=== PATIENT | male | born 1935 | race Caucasian/White ===

== ENCOUNTER → 2016-05-31 | Outpatient (CLI) | payer MEDICARE | END | disposition home or self-care (01) | LOC: PCVCIMAG 11:39 | PROVIDERS: ATTEND Internal Medicine Cardiovascular Disease | DX: I48.91 Unspecified atrial fibrillation (principal); I35.0 Nonrheumatic aortic (valve) stenosis; I25.10 Atherosclerotic heart disease of native coronary artery without angina pectoris; I77.9 Disorder of arteries and arterioles, unspecified; E78.00 Pure hypercholesterolemia, unspecified; G45.9 Transient cerebral ischemic attack, unspecified; I10 Essential (primary) hypertension; R06.00 Dyspnea, unspecified; I70.1 Atherosclerosis of renal artery | CPT/HCPCS: 76770; 93975; G0463 ==

== ENCOUNTER → 2016-06-10 | Outpatient (CLI) | payer MEDICARE ==
[~2016-06-10] MED LIST: DIAZEPAM 10 MG TABLET. ONE; FENTANYL PF 100 MCG/2 ML VIAL. ONE; HEPARIN SODIUM 5,000 UNIT/ML VIAL. ONE; IOHEXOL 350 MG/ML 100 ML VIAL. ONE; IOHEXOL 350 MG/ML 50 ML VIAL. ONE; IV NORMAL SALINE 1000ML BAG 1,000 ML ONE; LIDOCAINE 1% Multi-Dose 20 ML VIAL. ONE; MIDAZOLAM HCL/PF 2 MG/2 ML VIAL. ONE; VANCOMYCIN 1GM IVPB FOR OMNI 0 ML ONE; hydrALAZINE 20 MG/ML VIAL. ONE
== END | disposition home or self-care (01) ==
LOC: PCVCINTER 06:54
PROVIDERS: ATTEND Nuclear Medicine Nuclear Cardiology
DX: I70.0 Atherosclerosis of aorta (principal); I70.1 Atherosclerosis of renal artery; I15.0 Renovascular hypertension
CPT/HCPCS: 36252; 75630; 76937; 93454; 93567; C1751; C1760; C1769; C1894; J2250; J3010; J7030; Q9967; J0360; J1644; J3370

== ENCOUNTER → 2016-09-02 | Outpatient (CLI) | payer MEDICARE ==
--- NOTE | 2016-09-02 09:55 | PCVCIMAG ---
APPROVED REPORT Patient Location: Out-Patient Indications Bruit Doppler Spectral Velocity Analysis PSV / EDVPSV / EDV ECA (R) 94 / 10 cm/sECA (L) 217 / 26 cm/s dICA (R) 33 / 8 cm/sdICA (L) 49 / 14 cm/s Arleth (R) 72 / 15 cm/smICA (L) 52 / 10 cm/s pICA (R) 55 / 11 cm/spICA (L) 73 / 18 cm/s Bulb (R) 60 / 25 cm/sBulb (L) 86 / 18 cm/s dCCA (R) 69 / 15 cm/sdCCA (L) 86 / 14 cm/s mCCA (R) 98 / 15 cm/smCCA (L) 77 / 14 cm/s Vert (R) 28 / 5 cm/sVert (L) 54 / 10 cm/s ICA/CCA 1.04 ICA/CCA 0.85 Findings The right carotid bulb has moderate heterogeneous plaque. The right proximal internal carotid artery shows <40% stenosis. The right common carotid artery shows no significant stenosis. The right external carotid artery shows no significant stenosis. The left carotid bulb has moderate heterogeneous plaque. The left proximal internal carotid artery shows <40% stenosis. The left common carotid artery shows no significant stenosis. The left external carotid artery shows >50% stenosis. Conclusion 1. Right internal carotid artery stenosis (<40%) 2. Left internal carotid artery stenosis (<40%) 3. Antegrade vertebral flow
--- NOTE | 2016-09-02 13:18 | PCVCIMAG ---
APPROVED REPORT Study performed: 09/02/2016 11:01:16 EXAM: Comprehensive 2D, Doppler, and color-flow Echocardiogram Patient Location: Echo lab Status: routine Other Information Study Quality: Adequate Indications Aortic Valve Disease Atrial Fibrillation Hypertension/HDD Hyperlipidemia, Aortic Stenosis 2D Dimensions IVSd: 9.48 (7-11mm)LVOT Diam: 20.34 (18-24mm) LVDd: 46.53 mm PWd: 9.91 (7-11mm)Ascending Ao: 36.49 (22-36mm) LVDs: 34.52 (25-40mm) Left Atrium: 61.41 (27-40mm) Aortic Root: 28.14 mm LV Single Plane 4CH: 56.16 % LV Single Plane 2CH: 42.41 %Tom's LVEF: 49.28 % Biplane EF: 50.9 % Volumes Left Atrial Volume (Systole) Single Plane 4CH: 95.22 mLSingle Plane 2CH: 109.90 mL Aortic Valve AoV Peak Trenton.: 3.39 m/s AO Peak Gr.: 46.32 mmHgLVOT Max P.61 mmHg AO Mean Gr.: 28.30 mmHgLVOT Mean P.77 mmHg AO V2 Mean: 2.53 m/sLVOT Max V: 0.95 m/s AO V2 VTI: 80.00 cmLVOT Mean V: 0.61 m/s YOHAN (VTI): 0.82 [id number] V1 VTI: 20.31 cm YOHAN Vmax: 0.91 cm2 SV (LVOT): 65.96 mL Mitral Valve E/A Ratio: 0.9 MV E Max Trenton.: 1.14 m/s MV A Trenton.: 1.25 m/s Tricuspid Valve TR Peak [place]on.: 3.19 m/s TR Peak Gr.: 41.05 mmHg Left Ventricle The left ventricle is normal size. There is normal LV segmental wall motion. There is normal left ventricular wall thickness. Left ventricular systolic function is normal. The left ventricular ejection fraction is within the normal range. LVEF is 50-55%. The left ventricular diastolic function is normal. Right Ventricle The right ventricle is normal size. The right ventricular systolic function is normal. Atria Left atrium is severely dilated. The right atrium size is normal. Aortic Valve The aortic valve is moderately sclerotic. Aortic Valve Area is 0.8 cm2. Peak gradient is 51mmhg. Mean gradient is 33mmhg. No aortic regurgitation is present. There is no aortic valvular Mitral Valve The mitral valve is normal in structure. Mild mitral regurgitation. No evidence of mitral valve stenosis. Tricuspid Valve The tricuspid valve is normal in structure. Moderate tricuspid regurgitation. Pulmonary artery pressure is 55mmhg. Pulmonic Valve The pulmonary valve is normal in structure. There is no pulmonic valvular regurgitation. Great Vessels The aortic root is normal in size. IVC is normal in size and collapses with >50% inspiration Pericardium There is no pericardial effusion. <Conclusion> The left ventricle is normal size. Left ventricular systolic function is normal. The left ventricular ejection fraction is within the normal range. The left ventricular diastolic function is normal. The right ventricle is normal size. The aortic valve is moderately sclerotic. Aortic Valve Area is 0.8 cm2. Peak gradient is 51mmhg. Mean gradient is 33mmhg. No aortic regurgitation is present. Mild mitral regurgitation. There is no pericardial effusion. Moderate tricuspid regurgitation. Pulmonary artery pressure is 55mmhg.
== END | disposition home or self-care (01) ==
LOC: PCVCIMAG 09:21
PROVIDERS: ATTEND Internal Medicine Cardiovascular Disease
DX: I65.23 Occlusion and stenosis of bilateral carotid arteries (principal); I08.1 Rheumatic disorders of both mitral and tricuspid valves; I48.0 Paroxysmal atrial fibrillation; I77.89 Other specified disorders of arteries and arterioles; I45.10 Unspecified right bundle-branch block; I25.10 Atherosclerotic heart disease of native coronary artery without angina pectoris; I10 Essential (primary) hypertension; I49.3 Ventricular premature depolarization; R09.89 Other specified symptoms and signs involving the circulatory and respiratory systems; Z79.899 Other long term (current) drug therapy; Z87.891 Personal history of nicotine dependence; Z88.0 Allergy status to penicillin
CPT/HCPCS: 80061; 93005; 93306; 93880; G0463

== ENCOUNTER → 2017-08-14 | Outpatient (CLI) | payer MEDICARE | END | disposition home or self-care (01) | LOC: PCVCCLINIC 11:20 | DX: I25.10 Atherosclerotic heart disease of native coronary artery without angina pectoris (principal); I10 Essential (primary) hypertension; I35.0 Nonrheumatic aortic (valve) stenosis; I48.0 Paroxysmal atrial fibrillation; I77.9 Disorder of arteries and arterioles, unspecified; E78.00 Pure hypercholesterolemia, unspecified; Z87.891 Personal history of nicotine dependence; Z79.899 Other long term (current) drug therapy; Z88.0 Allergy status to penicillin | CPT/HCPCS: 93005; G0463 ==

== ENCOUNTER → 2017-12-16 | Outpatient (CLI) | payer MEDICARE ==
--- NOTE | 2017-12-16 15:15 | PCVCIMAG ---
APPROVED REPORT Study performed: 12/16/2017 10:20:54 EXAM: Comprehensive 2D, Doppler, and color-flow Echocardiogram Patient Location: Echo lab Status: routine BSA: 1.97 HR: 73 bpm Rhythm: Atrial Fibrillation Other Information Study Quality: Good Risk Factors: Cardiac Risk Factors: Hyperlipidemia, HTN Indications Atrial Fibrillation CAD Stents, Aortic Stenosis 2D Dimensions IVSd: 13.92 (7-11mm)LVOT Diam: 20.18 (18-24mm) LVDd: 46.23 mm PWd: 9.49 (7-11mm)Ascending Ao: 38.46 (22-36mm) LVDs: 35.77 (25-40mm) Left Atrium: 64.67 (27-40mm) Aortic Root: 31.89 mm LV Single Plane 4CH: 41.63 % LV Single Plane 2CH: 28.72 % Biplane EF: 37.0 % Volumes Left Atrial Volume (Systole) Single Plane 4CH: 113.38 mLSingle Plane 2CH: 125.72 mL LA ESV Index: 65.00 mL/m2 Aortic Valve AoV Peak Trenton.: 4.05 m/s AO Peak Gr.: 65.67 mmHgLVOT Max P.69 mmHg AO Mean Gr.: 38.98 mmHgLVOT Mean P.68 mmHg AO V2 Mean: 3.05 m/sLVOT Max V: 0.96 m/s AO V2 VTI: 100.14 cm YOHAN (VTI): 0.65 [id number] V1 VTI: 20.49 cm YOHAN Vmax: 0.76 cm2 Mitral Valve E/A Ratio: 1.0 MV E Max Trenton.: 1.30 m/s MV A Trenton.: 1.29 m/s Pulmonary Valve PV Peak Gr.: 3.12 mmHg Tricuspid Valve TR Peak Trenton.: 3.19 m/s TR Peak Gr.: 40.72 mmHg Left Ventricle The left ventricle is normal size. There is normal LV segmental wall motion. Mild to moderate concentric left ventricular hypertrophy. Left ventricular systolic function is normal. The left ventricular ejection fraction is within the normal range. LVEF is 50-55%. This study is not technically sufficient to allow evaluation of the LV diastolic function due to atrial fibrillation. Right Ventricle The right ventricle is normal size. The right ventricular systolic function is normal. Atria Left atrium is severely dilated. Right atrium is moderately dilated. Aortic Valve Aortic valve leaflets are moderately thickened. Trace to mild aortic regurgitation. Severe aortic stenosis. Peak gradient is 60mmHg. Mean gradient is 39mmHg. Aortic valve area is 0.8cm2. Mitral Valve Mild mitral annular calcification. Mild mitral regurgitation. No evidence of mitral valve stenosis. Tricuspid Valve The tricuspid valve is normal in structure. Moderate tricuspid regurgitation. Pulmonary artery pressure is 48mmHg. Pulmonic Valve The pulmonary valve is normal in structure. There is no pulmonic valvular regurgitation. Great Vessels The aortic root is normal in size. IVC is normal in size and collapses >50% with inspiration. Pericardium There is no pericardial effusion. <Conclusion> The left ventricle is normal size. Mild to moderate concentric left ventricular hypertrophy. LVEF is 50-55%. This study is not technically sufficient to allow evaluation of the LV diastolic function due to atrial fibrillation. The right ventricle is normal size. Left atrium is severely dilated. Right atrium is moderately dilated. Aortic valve leaflets are moderately thickened. Trace to mild aortic regurgitation. Severe aortic stenosis. Peak gradient is 60mmHg. Mean gradient is 39mmHg. Aortic valve area is 0.8cm2. Mild mitral annular calcification. Mild mitral regurgitation. The aortic root is normal in size. There is no pericardial effusion.
== END | disposition home or self-care (01) ==
LOC: PCVCIMAG 09:57
PROVIDERS: ATTEND Internal Medicine Cardiovascular Disease
DX: I05.1 Rheumatic mitral insufficiency (principal); I25.10 Atherosclerotic heart disease of native coronary artery without angina pectoris; I48.0 Paroxysmal atrial fibrillation; I35.0 Nonrheumatic aortic (valve) stenosis; I77.9 Disorder of arteries and arterioles, unspecified; E78.00 Pure hypercholesterolemia, unspecified; I10 Essential (primary) hypertension; I70.1 Atherosclerosis of renal artery; Z86.73 Personal history of transient ischemic attack (TIA), and cerebral infarction without residual deficits; Z87.891 Personal history of nicotine dependence
CPT/HCPCS: 80061; 93005; 93306; G0463

== ENCOUNTER → 2018-03-05 | Outpatient (CLI) | payer MEDICARE | END | disposition home or self-care (01) | LOC: PCVCCLINIC 13:00 | PROVIDERS: ATTEND Internal Medicine Cardiovascular Disease | DX: I25.10 Atherosclerotic heart disease of native coronary artery without angina pectoris (principal); I48.0 Paroxysmal atrial fibrillation; I35.0 Nonrheumatic aortic (valve) stenosis; I11.0 Hypertensive heart disease with heart failure; I50.9 Heart failure, unspecified; E78.00 Pure hypercholesterolemia, unspecified; I65.23 Occlusion and stenosis of bilateral carotid arteries; Z86.73 Personal history of transient ischemic attack (TIA), and cerebral infarction without residual deficits; Z87.891 Personal history of nicotine dependence; Z88.0 Allergy status to penicillin | CPT/HCPCS: 93005; G0463 ==

== ENCOUNTER → 2018-06-09 | Outpatient (CLI) | payer MEDICARE | END | disposition home or self-care (01) | LOC: PCVCCLINIC 11:12 | PROVIDERS: ATTEND Internal Medicine Cardiovascular Disease | DX: I25.10 Atherosclerotic heart disease of native coronary artery without angina pectoris (principal); I35.0 Nonrheumatic aortic (valve) stenosis; I48.2 Chronic atrial fibrillation; I10 Essential (primary) hypertension; E78.00 Pure hypercholesterolemia, unspecified; Z87.891 Personal history of nicotine dependence; Z72.89 Other problems related to lifestyle; Z79.899 Other long term (current) drug therapy; Z88.0 Allergy status to penicillin; Z88.8 Allergy status to other drugs, medicaments and biological substances | CPT/HCPCS: 36415; 80061; 93005; G0463 ==

== ENCOUNTER → 2019-01-13 | Outpatient (CLI) | payer MEDICARE ==
--- NOTE | 2019-01-13 11:31 | PCVCIMAG ---
APPROVED REPORT Study performed: 01/13/2019 08:16:36 EXAM: Comprehensive 2D, Doppler, and color-flow Echocardiogram Patient Location: Echo lab Room #: 2Status: routine BSA: 2.01 HR: 65 bpmBP: 150/94 mmHg Rhythm: Atrial Fibrillation Other Information Study Quality: Good Risk Factors: Cardiac Risk Factors: HTN Indications Aortic Valve Disease Atrial Fibrillation CAD Hypertension/HDD 2D Dimensions IVSd: 11.56 (7-11mm)LVOT Diam: 19.64 (18-24mm) LVDd: 47.21 mm PWd: 10.72 (7-11mm) LVDs: 29.20 (25-40mm) Left Atrium: 54.56 (27-40mm) Aortic Root: 24.42 mm LV Single Plane 4CH: 73.21 % LV Single Plane 2CH: 60.56 % Biplane EF: 68.0 % Volumes Left Atrial Volume (Systole) Single Plane 4CH: 166.26 mLSingle Plane 2CH: 122.69 mL Biplane LA Volume: 145.00 mLLA ESV Index: 71.00 mL/m2 Aortic Valve AoV Peak Trenton.: 4.04 m/s AO Peak Gr.: 68.36 mmHgLVOT Max P.85 mmHg AO Mean Gr.: 41.77 mmHgLVOT Mean P.42 mmHg AO V2 Mean: 3.08 m/sLVOT Max V: 0.83 m/s AO V2 VTI: 99.80 cmLVOT Mean V: 0.57 m/s YOHAN (VTI): 0.57 [id number] V1 VTI: 18.76 cm YOHAN Vmax: 0.62 cm2 SV (LVOT): 56.82 mL Mitral Valve E/A Ratio: 8.7 MV E Max Trenton.: 0.96 m/s MV A Trenton.: 0.11 m/s MV VTI: 210.17 mm MVA VTI: 270.34 mm2 IVRT: 93.43 ms TDI E/Lateral E': 9.60E/Medial E': 13.71 Medial E' Trenton.: 0.07 m/s Lateral E' Trenton.: 0.10 m/s Pulmonary Valve PV Peak Trenton.: 0.95 m/sPV Peak Gr.: 3.62 mmHg Tricuspid Valve TR Peak [place]on.: 3.17 m/s TR Peak Gr.: 40.27 mmHg TV Vmax: 0.78 m/sPA Pressure: 50.00 mmHg Left Ventricle The left ventricle is normal size. There is normal LV segmental wall motion. Mild concentric left ventricular hypertrophy. Left ventricular systolic function is normal. LVEF is 65-70%. This study is not technically sufficient to allow evaluation of the LV diastolic function due to atrial fibrillation. Right Ventricle The right ventricle is normal size. The right ventricular systolic function is normal. Atria Left atrium is severely dilated. Right atrium is severely dilated. Aortic Valve Aortic valve is trileaflet. Severe aortic valve sclerosis with severely reduced leaflet extention. No aortic regurgitation is present. There is severe valvular aortic stenosis. Calculated aortic valve area is 0.7 cm2 with maximum pressure gradient of 65 mmHg and mean pressure gradient of 42 mmHg. Mitral Valve The mitral valve is normal in structure. Moderate to severe mitral regurgitation No evidence of mitral valve stenosis. Tricuspid Valve The tricuspid valve is normal in structure. Severe tricuspid regurgitation with a PA pressure of 50 mmHg. Moderate pulmonary hypertension. Pulmonic Valve The pulmonary valve is normal in structure. There is no pulmonic valvular regurgitation. Great Vessels The aortic root is normal in size. Ascending aorta is mildly dilated at 3.8. Aortic arch is not well visualized. IVC is normal in size and collapses <50% with inspiration. Pericardium There is no pericardial effusion. There is no pleural effusion. <Conclusion> The left ventricle is normal size. Mild concentric left ventricular hypertrophy. LVEF is 65-70%. This study is not technically sufficient to allow evaluation of the LV diastolic function due to atrial fibrillation. The right ventricle is normal size. Left atrium is severely dilated. Right atrium is severely dilated. Aortic valve is trileaflet. Severe aortic valve sclerosis with severely reduced leaflet extention. There is severe valvular aortic stenosis. Calculated aortic valve area is 0.7 cm2 with maximum pressure gradient of 65 mmHg and mean pressure gradient of 42 mmHg. Moderate to severe mitral regurgitation Severe tricuspid regurgitation with a PA pressure of 50 mmHg. Moderate pulmonary hypertension. There is no pericardial effusion. Ascending aorta is mildly dilated at 3.8. Aortic arch is not well visualized.
== END | disposition home or self-care (01) ==
LOC: PCVCIMAG 08:22
PROVIDERS: ATTEND Internal Medicine Cardiovascular Disease
DX: I08.3 Combined rheumatic disorders of mitral, aortic and tricuspid valves (principal); I11.9 Hypertensive heart disease without heart failure; I25.10 Atherosclerotic heart disease of native coronary artery without angina pectoris; I48.21 Permanent atrial fibrillation; C43.9 Malignant melanoma of skin, unspecified; E78.00 Pure hypercholesterolemia, unspecified; I27.20 Pulmonary hypertension, unspecified; D68.59 Other primary thrombophilia; I65.23 Occlusion and stenosis of bilateral carotid arteries; Z88.0 Allergy status to penicillin; Z88.8 Allergy status to other drugs, medicaments and biological substances; Z86.73 Personal history of transient ischemic attack (TIA), and cerebral infarction without residual deficits; Z90.49 Acquired absence of other specified parts of digestive tract; Z79.899 Other long term (current) drug therapy; Z82.49 Family history of ischemic heart disease and other diseases of the circulatory system; Z87.891 Personal history of nicotine dependence
CPT/HCPCS: 93005; 93306; G0463